=== PATIENT | male | born 1995 | race Caucasian/White ===

== ENCOUNTER 2021-01-21 16:34 | Emergency (ER) | payer SELFPAY ==
[~2021-01-21] VITALS: Ht 175.3 cm; Wt 86.2 kg
--- NOTE | 2021-01-21 16:45 | NUR ---
at bedside to examine pt.
--- NOTE | 2021-01-21 16:58 | NUR ---
dcd instructions and prescription given to pt. who verbalized understanding. pt. left room AMbulatory [id number]. no c/of pain.
== END 2021-01-21 16:59 | disposition home or self-care (01) ==
LOC: ER 16:37
DX: L05.01 Pilonidal cyst with abscess (principal)
CPT/HCPCS: A4663